=== PATIENT | male | born 2000 | race Caucasian/White ===

== ENCOUNTER 2020-10-08 21:58 | Emergency (ER) | payer BC ==
[~2020-10-08] VITALS: Ht 177.8 cm; Wt 70.5 kg
[2020-10-08 22:11] VITALS: BP 122/79
[2020-10-08] MEDS ORDERED: dexamethasone sod phosphate 10mg/ml inj IM STA (22:23)
[2020-10-08] MEDS ORDERED: penicillin G benzathine 1.2 million unit/2ml syringe IM ONE (22:25)
[2020-10-08] MEDS ORDERED: NAPR-56 PO (22:25)
[2020-10-08] MEDS ORDERED: CEPH250T PO (22:25)
[2020-10-08] MEDS ORDERED: LIDO20SO16 PO (22:25)
== END 2020-10-08 22:43 | disposition home or self-care (01) ==
LOC: ER 22:00
DX: J02.0 Streptococcal pharyngitis (principal); R05 Cough; R50.9 Fever, unspecified; Z79.2 Long term (current) use of antibiotics; Z79.899 Other long term (current) drug therapy
CPT/HCPCS: 96372; 99284; J0561; J1100